=== PATIENT | female | born 1955 | race Caucasian/White ===

== ENCOUNTER 2018-01-16 21:02 | Emergency (ER) | payer OTHER ==
[2018-01-16] MEDS ORDERED: LIDOCAINE URO-JET JELLY 2% 5 ML KIT URETHRAL ONE (22:01)
[2018-01-16] MEDS: cloNIDine HCL 0.1 MG TAB PO STA ×2 (22:16→22:17)
--- NOTE | 2018-01-16 22:26 | ED ---
ENT HPI - General Chief complaint: ENT Stated complaint: nose bleed Time Seen by Provider: 01/16/18 21:48 Source: patient, RN notes reviewed Mode of arrival: ambulatory Limitations: no limitations - History of Present Illness Initial comments: This is a 62-year-old female who presents to the emergency department with chief complaint of epistaxis. Patient was evaluated by emergency department in [facility]. She states that she has been having right nasal bleeding for the past approximately 5 hours. Patient states that she does take Plavix daily. She states that the ED tried "epinephrine sniffing" and inserted one tampon as well as a rhino rocket. She reports that she bled through all methods. She states they had difficulty inserting the rhino rocket and tampon and that she experienced a significant amount of pain. She states that they told her they believe it is a posterior bleed. She reports blood running down her throat and entering her left nare. She states she has been non-stop bleeding with clot formation since 5 PM. Patient was transferred here to [facility] for further evaluation. The ED provider at [place] was in contact with Dr. Kirby, ENT and he recommended transfer here. Patient denies fever or chills, chest pain or shortness of breath, abdominal pain, nausea or vomiting. - Related Data Allergies Allergy/AdvReac Type Severity Reaction Status Date / Time methylprednisolone Allergy Rash/Hives Verified 01/16/18 21:12 [From Solu-Medrol] Review of Systems ROS Statement: Those systems with pertinent positive or pertinent negative responses have been documented in the HPI. ROS Other: All systems not noted in ROS Statement are negative. Past Medical History Past Medical History: Hyperlipidemia, Hypertension, Myocardial Infarction (NE) History of Any Multi-Drug Resistant Organisms: None Reported Past Surgical History: Coronary Bypass/CABG Past Psychological History: No Psychological Hx Reported Smoking Status: Current every day smoker Past Alcohol Use History: None Reported General Exam - General Exam Comments Initial Comments: General: Awake and alert, well-developed; in no apparent distress. HEENT: Head atraumatic, normocephalic. Pupils are equal, round and reactive to light. Extraocular movements intact. Oropharynx moist without erythema or exudate. Active bleeding from right nare with clot formation. No anterior bleed site is visualized. No septal hematoma formation. Neck: Supple. Normal ROM. Cardiovascular: Regular rate and rhythm. No murmurs, rubs or gallops. Chest symmetrical. Respiratory: Lungs clear to auscultation bilaterally. No wheezes, rales or rhonchi. Normal respiratory effort with no use of accessory muscles. Musculoskeletal: Normal ROM, no tenderness bilateral upper and lower extremities. Ambulating normally. Skin: [place], warm and dry without rashes or lesions. Neurological: Alert and oriented x3. CN II-XII grossly intact. Speech is fluent and answers are appropriate. No focal neuro deficits. Psychiatric: Normal mood and affect. No overt signs of depression or anxiety noted. Limitations: no limitations Course Vital Signs 01/16/18 21:08 Temperature 97.6 F Pulse Rate 101 H Respiratory 20 Rate Blood Pressure 165/95 O2 Sat by Pulse 97 Oximetry Medical Decision Making - Medical Decision Making This is a 62-year-old female who was transferred to the emergency department from [facility] for epistaxis. Patient has been bleeding from the right nare for the past 5 hours. She does have a history of hypertension and is on Plavix. Multiple methods of bleeding cessation were tried in the [facility] ER and they were unsuccessful. While in the emergency department here , one attempt was made to insert a Rhino Rocket with posterior balloon. This was unsuccessful as we were met with resistance. Viscous uro-jet jelly was used as requested by patient to aid with discomfort. Dr. Kirby was contacted and states he is willing to come in and attempt placement. States that if this is unsuccessful, may require transfer to [facility] for embolization. Spoke with patient and she is refusing repeat attempt of placement due to pain. Patient states she wants to drive herself to [facility]. Patient did have an elevated blood pressure on presentation. Recommended medication for lowering BP and patient refuses. Patient is in no acute distress and will be discharged for transfer to [facility]. Accepting physician is Dr. Subramanian. Disposition Clinical Impression: Epistaxis Disposition: OTHER INSTITUTION NOT DEFINED Condition: Stable Instructions: Nosebleed (ED) Additional Instructions: Please report directly to the emergency center at [facility]. Accepting physician will be Dr. Subramanian. Please follow up with primary care provider within 1-2 days. Return to emergency department if symptoms should worsen or any concerns arise. Is patient prescribed a controlled substance at d/c from ED?: No Referrals: Payam Brantley DO [Primary Care Provider] - 1-2 days Time of Disposition: 22:58 - Out of Hospital Transfer - Req. Specs Out of Hospital Transfer - Requested Specifics: Other Emergency Center ([facility]-Dr. Subramanian)
[2018-01-16 23:18] VITALS: BP 188/88; PULSE 77; RESP 16; TEMP 98.3
== END 2018-01-16 23:28 | disposition other institution (70) ==
LOC: EC 21:02
DX: R04.0 Epistaxis (principal); F17.200 Nicotine dependence, unspecified, uncomplicated; Z95.1 Presence of aortocoronary bypass graft; Z79.02 Long term (current) use of antithrombotics/antiplatelets; Z88.8 Allergy status to other drugs, medicaments and biological substances
CPT/HCPCS: 30905; 99284

== ENCOUNTER → 2018-03-16 | Outpatient (CLI) | payer OTHER ==
--- NOTE | 2018-03-19 08:57 | MM ---
Reason for exam: screening (asymptomatic). Last mammogram was performed 5 years and 4 months ago. History: Patient is postmenopausal. Physical Findings: A clinical breast exam by your physician is recommended on an annual basis and results should be correlated with mammographic findings. MG 3D Screening Mammo W/Cad Bilateral CC and MLO view(s) were taken. Prior study comparison: November 17, 2012, mammogram, performed at [facility]. There are scattered fibroglandular densities. Finding: There is a new, suspicious 13 mm high density, indistinct irregular mass located 7 cm from the nipple in the lower inner quadrant, posterior position of the left breast. New finding since November 17, 2012. ASSESSMENT: Incomplete: need additional imaging evaluation, BI-RAD 0 RECOMMENDATION: Special view mammogram and ultrasound of the left breast. [facility] will attempt to contact patient to return for supplemental views and ultrasound.
== END | disposition home or self-care (01) ==
LOC: RADMAMWWP 09:15
PROVIDERS: ATTEND Family Medicine
DX: Z12.31 Encounter for screening mammogram for malignant neoplasm of breast (principal)
CPT/HCPCS: 77063; 77067

== ENCOUNTER → 2018-04-01 | Outpatient (CLI) | payer OTHER ==
--- NOTE | 2018-04-02 08:32 | MM ---
Reason for exam: additional evaluation requested from abnormal screening. Last mammogram was performed 1 month ago. History: Patient is postmenopausal. Physical Findings: Nurse Summary: 1cm nodule in the right breast at 1 o'clock and a 1cm nodule in the left breast at 10 o'clock (nurse mj). MG 3D Work Up W/Cad LT CC and MLO view(s) were taken of the left breast. Prior study comparison: March 16, 2018, bilateral MG 3d screening mammo w/cad. November 17, 2012, mammogram, performed at [facility]. There are scattered fibroglandular densities. Finding: There is a persistent 7 mm high density, indistinct oval mass located 7 cm from the nipple in the 9 o'clock middle posterior position of the left breast. New finding since November 17, 2012. These results were verbally communicated with the patient and result sheet given to the patient on 04/01/18. ASSESSMENT: Suspicious, BI-RAD 4 RECOMMENDATION: Stereotactic core biopsy of the left breast. Manage on a clinical basis with regard to right breast palpable.
--- NOTE | 2018-04-02 08:37 | USB ---
Reason for exam: additional evaluation requested from abnormal screening. History: Patient is postmenopausal. US Breast Workup Limited [place] Right limited breast ultrasound including focal area of concern, retroareolar and axilla demonstrates no cystic or solid lesion seen. Left limited breast ultrasound including focal area of concern, retroareolar and axilla demonstrates a 4 x 3 x 4mm cystic lesion at 9 o'clock. These results were verbally communicated with the patient and result sheet given to the patient on 04/01/18. ASSESSMENT: Probably benign, BI-RAD 3 RECOMMENDATION: Stereotactic core biopsy of the left breast. Patient request to see her family Dr. Bardales to discuss results and will call to schedule. Dr. Love's office notified. PRELIMINARY REPORT CALLED AND FAXED TO DR. BARDALES ON 04/01/18.
== END | disposition home or self-care (01) ==
LOC: RADMAMWWP 14:07
PROVIDERS: ATTEND Family Medicine
DX: R92.8 Other abnormal and inconclusive findings on diagnostic imaging of breast (principal)
CPT/HCPCS: 77061; 77065